=== PATIENT | female | born 1975 | race Caucasian/White ===

== ENCOUNTER → 2017-06-29 | Outpatient (CLI) | payer OTHER ==
[~2017-06-29] MED LIST: CYMBALTA60 MG PO; MOTRIN800 MG PO; PRENATAL TABLE1 EAC3 PO
[2017-06-29 11:23] VITALS: BP 112/59
== END | disposition home or self-care (01) ==
LOC: IVINF 06-26 15:00
DX: Z31.82 Encounter for Rh incompatibility status (principal); Z3A.00 Weeks of gestation of pregnancy not specified
CPT/HCPCS: 96372; J2790

== ENCOUNTER 2017-08-29 07:17 | Inpatient (IN) | payer OTHER ==
[2017-08-29] VITALS (16 sets, daily range): BP systolic 114–140; BP diastolic 69–87
[~2017-08-29] VITALS: Ht 162.6 cm; Wt 68.6 kg
[2017-08-29 09:28] LABS: EOSINOPHIL (%) 0.3 % (0-5); HEMATOCRIT 28.2 % (36.0-46.0); IMMATURE GRANULOCYTE (%) 0.3 % (0.0-0.7); INSTRUMENT ABS NEUTROPHIL CT 4.4 K/uL; LYMPHOCYTE COUNT 0.8 K/uL (1.0-2.8); MCV 81.7 FL (83-99); MEAN PLAT.VOLUME 11.9 uM^3 (9.5-12.4); MONOCYTE (%) 10.7 % (3-12); MONOCYTE COUNT 0.6 K/uL (0-0.8); NEUTROPHIL (%) 75.5 % (45-76); NEUTROPHIL COUNT 4.4 K/uL (1.8-6.4); PLATELET COUNT 132 K/uL (156-360); RBC DIS.WIDTH-CV 14.3 % (11.8-14.6); RBC DIS.WIDTH-SD 41.5 % (39-53); RED BLOOD COUNT 3.45 M/uL (3.80-5.20); WHITE BLOOD COUNT 5.8 K/uL (4.1-10.2)
[2017-08-30 05:25] LABS: EOSINOPHIL (%) 0.6 % (0-5); EOSINOPHIL COUNT 0.1 K/uL (0-0.3); IMMATURE GRANULOCYTE (%) 0.5 % (0.0-0.7); IMMATURE GRANULOCYTE COUNT 0.1 K/uL; INSTRUMENT ABS NEUTROPHIL CT 7.3 K/uL; LYMPHOCYTE COUNT 1.1 K/uL (1.0-2.8); MCH 27.1 PG (29.0-34.0); MCV 82.3 FL (83-99); MONOCYTE (%) 10.5 % (3-12); NEUTROPHIL (%) 76.4 % (45-76); NEUTROPHIL COUNT 7.3 K/uL (1.8-6.4); PLATELET COUNT 154 K/uL (156-360); RBC DIS.WIDTH-CV 14.5 % (11.8-14.6); RBC DIS.WIDTH-SD 42.9 % (39-53); RED BLOOD COUNT 3.28 M/uL (3.80-5.20); WHITE BLOOD COUNT 9.6 K/uL (4.1-10.2)
[2017-08-30 08:01] VITALS: BP 120/73
[2017-08-30] MEDS ORDERED: IBUPROFEN800 MG PO (09:33)
[2017-08-30 15:34] VITALS: BP 119/71
== END 2017-08-30 22:30 | disposition home or self-care (01) | DRG 775 ==
LOC: LDRP-OP 07:17 → 2WEST 07:18 → LDRP-OP 08:26 → 2WEST 17:02 → LDRP-OP 10-05 16:16
PROVIDERS: Advanced Practice Midwife
DX: O70.0 First degree perineal laceration during delivery (principal); O99.02 Anemia complicating childbirth; D62 Acute posthemorrhagic anemia; D50.9 Iron deficiency anemia, unspecified; O99.12 Other diseases of the blood and blood-forming organs and certain disorders involving the immune mechanism complicating childbirth; D69.6 Thrombocytopenia, unspecified; O99.344 Other mental disorders complicating childbirth; F32.9 Major depressive disorder, single episode, unspecified; F41.9 Anxiety disorder, unspecified; O99.89 Other specified diseases and conditions complicating pregnancy, childbirth and the puerperium; M79.7 Fibromyalgia; Z3A.39 39 weeks gestation of pregnancy; Z37.0 Single live birth
CPT/HCPCS: 83030; 85025; 86850; 86870; 86900; 86901; 86905; 86920; C1755; J2790; J3010; J7120